=== PATIENT | female | born 1945 ===

== ENCOUNTER 2018-11-06 07:20 | Day surgery (SDC) | payer OTHER ==
[2018-11-06] MEDS ORDERED: Lactated Ringer's 500 ML IV ONE (07:45)
[2018-11-06 08:10] VITALS: BMI 27.1
[2018-11-06] MEDS ORDERED: Propofol 10 mg/ml Inj (20 ML) ONE (09:08)
[2018-11-06 10:05] VITALS: BP 95/51; PULSE 70; RESP 27; TEMP 96.9; O2SAT 97
== END 2018-11-06 11:29 | disposition home or self-care (01) ==
LOC: H.ENDO 07:20
PROVIDERS: ATTEND Internal Medicine Gastroenterology
DX: Z12.11 Encounter for screening for malignant neoplasm of colon (principal); K64.8 Other hemorrhoids; I10 Essential (primary) hypertension; E11.9 Type 2 diabetes mellitus without complications; Z79.84 Long term (current) use of oral hypoglycemic drugs
CPT/HCPCS: 45378; J2001; J2704; J7120